=== PATIENT | male | born 1945 | race Caucasian/White ===

== ENCOUNTER 2017-07-10 05:30 | Emergency (ER) | payer MEDICARE, BC ==
[~2017-07-10] VITALS: Ht 172.7 cm; Wt 102.7 kg
[2017-07-10 05:33] VITALS: TEMP 97.8
[2017-07-10 06:38] LABS: EOS # 0.2 (0.0-0.7); GRAN # 1.1 (1.4-6.5); GRAN % 52.2 % (42.2-75.2); LYMPH # 0.5 (1.2-3.4); LYMPH % 24.4 % (20.0-51.0); MEAN CELL VOLUME 101 fl (80.0-100.0); MEAN CORPUSCULAR HGB CONC 34 g/dl (33.0-37.0); MEAN PLATELET VOLUME 10.7 fl (7.4-10.4); MONO # 0.3 (0.1-0.6); MONO % 15.5 % (1.7-9.3); PLATELET COUNT 83 K/mm3 (130-400); RED BLOOD COUNT 3.23 M/mm3 (4.20-5.60); REDCELL DISTRIBUTION WIDTH-CV 13.8 % (11.5-14.5); WHITE BLOOD COUNT 2.1 K/mm3 (4.8-10.8)
[2017-07-10 06:39] LABS: HEMATOCRIT 32.6 % (42.0-52.0); MEAN CORPUSCULAR HEMOGLOBIN 34 pg (27.0-31.0)
[2017-07-10 06:47] LABS: INR 1.1 (0.8-3.0); PROTHROMBIN TIME 11.9 SECONDS (9.7-12.8)
[2017-07-10 06:52] LABS: ADJUSTED CALCIUM 9.6 mg/dL (8.4-10.2); ALANINE AMINOTRANSFERASE 47 U/L (21-72); ALBUMIN 3.2 gm/dL (3.5-5.0); ALKALINE PHOSPHATASE 94 U/L (50-136); ANION GAP 7 mmol/L (7-16); BILIRUBIN,TOTAL 0.7 mg/dL (0.0-1.0); BLOOD UREA NITROGEN 22 mg/dL (9-20); C-REACTIVE PROTEIN 0.8 mg/dL (0.0-0.9); CARBON DIOXIDE 25 mmol/L (22-30); CHLORIDE 106 mmol/L (98-107); CREATININE, serum 1.07 mg/dL (0.66-1.25); GLUCOSE 116 mg/dL (74-106); LIPASE 117 U/L (23-300); SODIUM 138 mmol/L (137-145); TOTAL PROTEIN 5.6 gm/dL (6.4-8.2)
[2017-07-10 06:58] LABS: PH 5 (5-8); SQUAMOUS EPITHELIAL 0-2 /hpf; URINE APPEARANCE Clear; URINE BACTERIA None Seen /hpf; URINE BILIRUBIN Negative (NEGATIVE); URINE BLOOD Negative (NEGATIVE); URINE COLOR Yellow; URINE GLUCOSE Negative (NEGATIVE); URINE KETONE Negative (NEGATIVE); URINE RBC 0-2 /hpf; URINE WBC 0-2 /hpf
[2017-07-10 07:01] LABS: TROPONIN-I < 0.012 ng/mL (0.000-0.034)
[2017-07-10] MEDS ORDERED: LEVAQUIN 5500 MG/TA1 PO (10:25)
[2017-07-10 11:03] VITALS: BP 108/60; PULSE 57
== END 2017-07-10 10:57 | disposition home or self-care (01) ==
LOC: COL.ER 05:30
PROVIDERS: Emergency Medicine
DX: C18.9 Malignant neoplasm of colon, unspecified (principal); C78.7 Secondary malignant neoplasm of liver and intrahepatic bile duct; Z90.49 Acquired absence of other specified parts of digestive tract
CPT/HCPCS: J2270; J2405; J7030; Q9967

== ENCOUNTER 2017-08-22 16:09 | Inpatient (IN) | payer MEDICARE, BC ==
[~2017-08-22] VITALS: Ht 172.7 cm; Wt 99.6 kg
[~2017-08-22 16:09] MED LIST: LEVAQUIN 5500 MG/TA1 PO
[2017-08-22] MEDS ORDERED: TENORMIN100 MG PO (16:28)
[2017-08-22] MEDS ORDERED: ZOCOR 20MG20 MG PO (16:28)
[2017-08-22] MEDS ORDERED: STOOL SOFTENER100 M2 PO (16:28)
[2017-08-22] MEDS ORDERED: METAMUCIL3.4 GM/DOS PO (16:29)
[2017-08-22 17:12] LABS: BASO % 0.7 % (0.0-2.0); EOS # 0.1 (0.0-0.7); EOS % 2.4 % (0-4.0); GRAN # 2.2 (1.4-6.5); GRAN % 74.4 % (42.2-75.2); LYMPH # 0.5 (1.2-3.4); LYMPH % 15.8 % (20.0-51.0); MEAN CELL VOLUME 102 fl (80.0-100.0); MEAN CORPUSCULAR HGB CONC 34 g/dl (33.0-37.0); MEAN PLATELET VOLUME 11.1 fl (7.4-10.4); MONO # 0.2 (0.1-0.6); MONO % 6.4 % (1.7-9.3); PLATELET COUNT 71 K/mm3 (130-400); RED BLOOD COUNT 3.11 M/mm3 (4.20-5.60); REDCELL DISTRIBUTION WIDTH-CV 13.6 % (11.5-14.5)
[2017-08-22 17:18] LABS: HEMATOCRIT 31.6 % (42.0-52.0); HEMOGLOBIN 10.7 g/dl (13.5-18.0); MEAN CORPUSCULAR HEMOGLOBIN 34 pg (27.0-31.0)
[2017-08-22 17:21] LABS: INR 1.1 (0.8-3.0); PROTHROMBIN TIME 12.7 SECONDS (9.7-12.8)
[2017-08-22 17:35] LABS: ADJUSTED CALCIUM 9.7 mg/dL (8.4-10.2); ALANINE AMINOTRANSFERASE 72 U/L (21-72); ALBUMIN 3.3 gm/dL (3.5-5.0); ALKALINE PHOSPHATASE 110 U/L (50-136); ANION GAP 7 mmol/L (7-16); BILIRUBIN,TOTAL 1.1 mg/dL (0.0-1.0); BLOOD UREA NITROGEN 19 mg/dL (9-20); CALCIUM 9.1 mg/dL (8.4-10.2); CARBON DIOXIDE 24 mmol/L (22-30); CHLORIDE 109 mmol/L (98-107); CREATININE, serum 1.37 mg/dL (0.66-1.25); GLUCOSE 110 mg/dL (74-106); LIPASE 142 U/L (23-300); POTASSIUM 4.2 mmol/L (3.4-5.0); SODIUM 140 mmol/L (137-145); TOTAL PROTEIN 5.7 gm/dL (6.4-8.2)
[2017-08-22 17:46] LABS: TROPONIN-I < 0.012 ng/mL (0.000-0.034)
[2017-08-22 18:29] LABS: PH 5 (5-8); SQUAMOUS EPITHELIAL 0-2 /hpf; URINE APPEARANCE Clear; URINE BACTERIA None Seen /hpf; URINE BILIRUBIN Negative (NEGATIVE); URINE BLOOD Negative (NEGATIVE); URINE COLOR Yellow; URINE GLUCOSE Negative (NEGATIVE); URINE KETONE Negative (NEGATIVE); URINE RBC 0-2 /hpf; URINE WBC 0-2 /hpf
[2017-08-22 22:08] VITALS: BP 118/76; PULSE 78; TEMP 98.4
[2017-08-23 00:11] VITALS: BP 96/40; PULSE 75; TEMP 98.6
[2017-08-23 03:47] VITALS: BP 95/43; PULSE 62; TEMP 97.6
[2017-08-23 07:45] VITALS: BP 102/57; PULSE 64; TEMP 98.2
[2017-08-23 07:49] LABS: BASO % 0.5 % (0.0-2.0); EOS % 1.8 % (0-4.0); GRAN # 1.5 (1.4-6.5); GRAN % 68.2 % (42.2-75.2); LYMPH # 0.5 (1.2-3.4); LYMPH % 21.8 % (20.0-51.0); MEAN CELL VOLUME 103 fl (80.0-100.0); MEAN CORPUSCULAR HGB CONC 33 g/dl (33.0-37.0); MEAN PLATELET VOLUME 10.6 fl (7.4-10.4); MONO # 0.2 (0.1-0.6); MONO % 6.8 % (1.7-9.3); PLATELET COUNT 60 K/mm3 (130-400); WHITE BLOOD COUNT 2.2 K/mm3 (4.8-10.8)
[2017-08-23 08:01] LABS: CALCIUM 8.6 mg/dL (8.4-10.2); CREATININE, serum 1.12 mg/dL (0.66-1.25); POTASSIUM 4.3 mmol/L (3.4-5.0)
[2017-08-23 08:02] LABS: HEMATOCRIT 27.7 % (42.0-52.0); HEMOGLOBIN 9.2 g/dl (13.5-18.0); MEAN CORPUSCULAR HEMOGLOBIN 34 pg (27.0-31.0)
[2017-08-23 12:21] VITALS: BP 100/51; PULSE 68; TEMP 97.5
[2017-08-23 15:51] VITALS: BP 117/64; PULSE 68; TEMP 98.4
[2017-08-23] MEDS ORDERED: FLAGYL500 MG PO (17:53)
[2017-08-23] MEDS ORDERED: LEVAQUIN 750MG750 M1 PO (17:53)
[2017-08-23] MEDS ORDERED: TENORMIN100 MG PO (17:54)
== END 2017-08-23 18:59 | disposition home or self-care (01) | DRG 392 ==
LOC: COL.ER 16:09 → MEDICAL 19:32
PROVIDERS: Emergency Medicine; Family Medicine
DX: K57.32 Diverticulitis of large intestine without perforation or abscess without bleeding (principal); D61.818 Other pancytopenia; C78.7 Secondary malignant neoplasm of liver and intrahepatic bile duct; N17.9 Acute kidney failure, unspecified; I10 Essential (primary) hypertension; E78.5 Hyperlipidemia, unspecified; G47.33 Obstructive sleep apnea (adult) (pediatric); Z85.038 Personal history of other malignant neoplasm of large intestine
CPT/HCPCS: 99223-AI; 99239; J1170; J2543; J2765; J3010; J7030; J7050; Q9967

== ENCOUNTER 2017-09-05 01:40 | Emergency (ER) | payer MEDICARE, BC ==
[~2017-09-05] VITALS: Ht 172.7 cm; Wt 102.7 kg
[~2017-09-05 01:40] MED LIST changes: +FLAGYL500 MG PO; +LEVAQUIN 750MG750 M1 PO; +METAMUCIL3.4 GM/DOS PO; +STOOL SOFTENER100 M2 PO; +TENORMIN100 MG PO; +ZOCOR 20MG20 MG PO
[2017-09-05 01:55] VITALS: TEMP 97.3
[2017-09-05 02:58] LABS: MEAN CELL VOLUME 108 fl (80.0-100.0); MEAN CORPUSCULAR HGB CONC 32 g/dl (33.0-37.0); MEAN PLATELET VOLUME 11.3 fl (7.4-10.4); PLATELET COUNT 72 K/mm3 (130-400); RED BLOOD COUNT 3.27 M/mm3 (4.20-5.60); WHITE BLOOD COUNT 9.1 K/mm3 (4.8-10.8)
[2017-09-05 03:09] LABS: ADJUSTED CALCIUM 9.5 mg/dL (8.4-10.2); ALBUMIN 3.1 gm/dL (3.5-5.0); BILIRUBIN,TOTAL 0.9 mg/dL (0.0-1.0); CALCIUM 8.8 mg/dL (8.4-10.2); CREATININE, serum 1.1 mg/dL (0.66-1.25); POTASSIUM 3.8 mmol/L (3.4-5.0); TOTAL PROTEIN 5.5 gm/dL (6.4-8.2)
[2017-09-05 03:25] LABS: ADD PATHOLOGY DIFF REVIEW NO; HEMATOCRIT 35.3 % (42.0-52.0); HEMOGLOBIN 11.2 g/dl (13.5-18.0); MEAN CORPUSCULAR HEMOGLOBIN 34 pg (27.0-31.0)
[2017-09-05 03:30] LABS: BAND 1 % (0-10); EOSINOPHIL 2 % (0-4); TOTAL CELLS COUNTED 100
[2017-09-05 03:31] LABS: ANISOCYTOSIS 2+; HYPOCHROMIA 2+; MICROCYTOSIS 1+; POIKILOCYTOSIS 2+; POLYCHROMASIA 1+
[2017-09-05 03:32] LABS: ROULEAUX 1+; TEAR DROP CELLS 1+
[2017-09-05 03:33] LABS: NEUTROPHILS 83 % (42.0-75.2)
[2017-09-05 03:57] LABS: PH 5 (5-8); SQUAMOUS EPITHELIAL None Seen /hpf; URINE APPEARANCE Clear; URINE BACTERIA None Seen /hpf; URINE BILIRUBIN Negative (NEGATIVE); URINE BLOOD Negative (NEGATIVE); URINE COLOR Yellow; URINE GLUCOSE Negative (NEGATIVE); URINE KETONE Negative (NEGATIVE); URINE RBC 0-2 /hpf; URINE UROBILINOGEN Negative (NEGATIVE); URINE WBC 0-2 /hpf
[2017-09-05 05:00] VITALS: BP 135/76; PULSE 85
== END 2017-09-05 05:22 | disposition home or self-care (01) ==
LOC: COL.ER 01:40
PROVIDERS: Emergency Medicine
DX: R10.30 Lower abdominal pain, unspecified (principal); Z85.038 Personal history of other malignant neoplasm of large intestine; Z90.49 Acquired absence of other specified parts of digestive tract
CPT/HCPCS: J1644; J2270; J7030; Q9967

== ENCOUNTER → 2018-03-11 | Outpatient (CLI) | payer MEDICARE, BC ==
[~2018-03-11] VITALS: Ht 172.7 cm; Wt 111.4 kg
[~2018-03-11] MED LIST changes: +ALDACTONE 25MG25 M1 PO; +LASIX 40MG TABL40 MG PO
[2018-03-11 09:57] VITALS: BP 154/87; PULSE 92
[2018-03-11 11:35] VITALS: BP 154/89; PULSE 86
== END ==
LOC: COL.RAD 09:45
DX: C18.2 Malignant neoplasm of ascending colon (principal); R18.0 Malignant ascites

== ENCOUNTER → 2018-04-29 | Outpatient (CLI) | payer MEDICARE, BC ==
[~2018-04-29] VITALS: Ht 172.7 cm; Wt 106.6 kg
[~2018-04-29] MED LIST changes: +5FU IV; +DOXYCYCLINE HY100 MG PO; +FLUOROURACIL50 MG/ML IV; +UROMAG140 MG PO; +[UNRECOGNIZED DRUG - OTHER] IV
[2018-04-29 12:53] VITALS: BP 120/72; PULSE 94
[2018-04-29 14:10] VITALS: BP 114/80; PULSE 79
== END ==
LOC: COL.RAD 04-27 11:45
DX: R18.8 Other ascites (principal)
CPT/HCPCS: 19804

== ENCOUNTER → 2018-05-14 | Outpatient (CLI) | payer MEDICARE, BC ==
[~2018-05-14] VITALS: Ht 172.7 cm; Wt 104.5 kg
[2018-05-14 13:15] VITALS: BP 115/73; PULSE 94
[2018-05-14 14:40] VITALS: BP 126/75; PULSE 95
== END ==
LOC: COL.RAD 12:45
DX: R18.8 Other ascites (principal); Z85.038 Personal history of other malignant neoplasm of large intestine

== ENCOUNTER → 2018-05-28 | Outpatient (CLI) | payer MEDICARE, BC ==
[~2018-05-28] VITALS: Ht 172.7 cm; Wt 106.3 kg
[~2018-05-28] MED LIST changes: +LASIX 80MG TABL80 MG PO
[2018-05-28 13:34] VITALS: BP 119/74; PULSE 86
[2018-05-28 16:21] VITALS: BP 122/73; PULSE 78
== END ==
LOC: COL.RAD 13:08
DX: C18.2 Malignant neoplasm of ascending colon (principal); R18.8 Other ascites

== ENCOUNTER 2018-06-14 12:54 | Outpatient (CLI) | payer MEDICARE, BC ==
[~2018-06-14] VITALS: Ht 172.7 cm; Wt 106.5 kg
[2018-06-14 13:02] VITALS: BP 128/93; PULSE 93
[2018-06-14 15:33] VITALS: BP 106/60; PULSE 78
[2018-06-14 15:35] LABS: PERITONEAL -POLYMORPHONUCLEAR 23.6 % (0-25); PERITONEAL FLUID RBC 0 /mm3 (0-0)
== END 2018-06-14 18:00 | disposition home or self-care (01) ==
LOC: COL.RAD 12:54
PROVIDERS: Internal Medicine
DX: R18.8 Other ascites (principal); Z85.038 Personal history of other malignant neoplasm of large intestine
CPT/HCPCS: P9047

== ENCOUNTER 2018-07-01 13:40 | Outpatient (CLI) | payer MEDICARE, BC ==
[~2018-07-01] VITALS: Ht 172.7 cm; Wt 102.7 kg
[2018-07-01 14:01] VITALS: BP 114/69; PULSE 83
[2018-07-01 16:46] LABS: PERITONEAL -POLYMORPHONUCLEAR 23.8 % (0-25); PERITONEAL FLUID RBC 1000 /mm3 (0-0)
== END 2018-07-01 17:34 | disposition home or self-care (01) ==
LOC: COL.RAD 13:40
PROVIDERS: Internal Medicine
DX: C18.2 Malignant neoplasm of ascending colon (principal); R18.0 Malignant ascites
CPT/HCPCS: P9047

== ENCOUNTER 2018-07-29 12:36 | Outpatient (CLI) | payer MEDICARE, BC ==
[~2018-07-29] VITALS: Ht 172.7 cm; Wt 95.6 kg
[2018-07-29 12:53] VITALS: BP 104/65; PULSE 86
[2018-07-29 14:41] LABS: PERITONEAL FLUID RBC 1000 /mm3 (0-0)
[2018-07-29 15:26] VITALS: BP 102/57; PULSE 73; TEMP 97
== END 2018-07-29 16:30 | disposition home or self-care (01) ==
LOC: EUO 12:36 → COL.RAD 12:36
PROVIDERS: Internal Medicine
DX: R18.8 Other ascites (principal); C77.1 Secondary and unspecified malignant neoplasm of intrathoracic lymph nodes; C77.2 Secondary and unspecified malignant neoplasm of intra-abdominal lymph nodes; C78.7 Secondary malignant neoplasm of liver and intrahepatic bile duct; C18.2 Malignant neoplasm of ascending colon
CPT/HCPCS: J1644; P9047

== ENCOUNTER 2018-08-20 09:00 | Outpatient (CLI) | payer MEDICARE, BC ==
[~2018-08-20] VITALS: Ht 172.7 cm; Wt 98.5 kg
[2018-08-20 09:14] VITALS: BP 119/76; PULSE 92
[2018-08-20 11:05] LABS: PERITONEAL -POLYMORPHONUCLEAR 22.7 % (0-25); PERITONEAL FLUID RBC 1000 /mm3 (0-0)
[2018-08-20 11:26] VITALS: BP 134/81; PULSE 82; TEMP 97.2
== END 2018-08-20 11:52 | disposition home or self-care (01) ==
LOC: COL.RAD 09:00
PROVIDERS: Internal Medicine
DX: C18.2 Malignant neoplasm of ascending colon (principal); R18.8 Other ascites
CPT/HCPCS: J1644; P9047

== ENCOUNTER 2018-09-07 09:01 | Outpatient (CLI) | payer MEDICARE, BC ==
[~2018-09-07] VITALS: Ht 172.7 cm; Wt 102.4 kg
[2018-09-07 09:17] VITALS: BP 129/79; PULSE 98
[2018-09-07 12:34] LABS: PERITONEAL -POLYMORPHONUCLEAR 20.4 % (0-25); PERITONEAL FLUID RBC 1000 /mm3 (0-0)
[2018-09-07 12:46] VITALS: BP 121/61; PULSE 54; TEMP 97.7
== END 2018-09-07 13:30 | disposition home or self-care (01) ==
LOC: COL.RAD 09:01
PROVIDERS: Internal Medicine
DX: C18.2 Malignant neoplasm of ascending colon (principal); R18.8 Other ascites
CPT/HCPCS: J1644; P9047

== ENCOUNTER 2018-09-29 14:21 | Outpatient (CLI) | payer MEDICARE, BC ==
[~2018-09-29] VITALS: Ht 172.7 cm; Wt 89.1 kg
[2018-09-29 14:38] VITALS: BP 125/86; PULSE 99
[2018-09-29 16:19] VITALS: BP 130/86; PULSE 81; TEMP 97.4
[2018-09-29 16:35] LABS: PLEURAL FLUID RBC 1000 /mm3 (0-0); PLEURAL FLUID WBC 115 /mm3
[2018-09-29 16:38] LABS: PLEURAL FLUID APPEARANCE HAZY; PLEURAL FLUID COLOR YELLOW
== END 2018-09-29 18:14 | disposition home or self-care (01) ==
LOC: COL.RAD 14:21
PROVIDERS: Internal Medicine
DX: C18.2 Malignant neoplasm of ascending colon (principal); C77.1 Secondary and unspecified malignant neoplasm of intrathoracic lymph nodes; C77.2 Secondary and unspecified malignant neoplasm of intra-abdominal lymph nodes; C78.7 Secondary malignant neoplasm of liver and intrahepatic bile duct
CPT/HCPCS: J1644; P9047

== ENCOUNTER 2018-11-18 09:42 | Outpatient (CLI) | payer MEDICARE, BC ==
[~2018-11-18] VITALS: Ht 172.7 cm; Wt 93.0 kg
[2018-11-18 10:11] VITALS: BP 126/74; PULSE 103
[2018-11-18 12:13] VITALS: BP 117/67; PULSE 93; TEMP 97.5
[2018-11-18 12:28] LABS: PERITONEAL -POLYMORPHONUCLEAR 9.1 % (0-25); PERITONEAL FLUID RBC 1000 /mm3 (0-0)
== END 2018-11-18 14:51 | disposition home or self-care (01) ==
LOC: EUO 09:42 → COL.RAD 09:42
PROVIDERS: Internal Medicine
DX: C18.2 Malignant neoplasm of ascending colon (principal); C77.1 Secondary and unspecified malignant neoplasm of intrathoracic lymph nodes; C77.2 Secondary and unspecified malignant neoplasm of intra-abdominal lymph nodes; C78.7 Secondary malignant neoplasm of liver and intrahepatic bile duct
CPT/HCPCS: J1644; P9047

== ENCOUNTER 2018-12-02 12:27 | Outpatient (CLI) | payer MEDICARE, BC ==
[~2018-12-02] VITALS: Ht 172.7 cm; Wt 86.4 kg
[2018-12-02 13:28] VITALS: BP 106/72; PULSE 79
[2018-12-02 15:08] LABS: PERITONEAL -POLYMORPHONUCLEAR 12.3 % (0-25); PERITONEAL FLUID RBC 1000 /mm3 (0-0)
[2018-12-02 15:33] VITALS: BP 98/65; PULSE 76; TEMP 97.4
--- NOTE | 2018-12-02 17:02 | NUR ---
De-accessed PAC post Albumin infusion
== END 2018-12-02 17:04 | disposition home or self-care (01) ==
LOC: COL.RAD 12:27
PROVIDERS: Internal Medicine
DX: C18.2 Malignant neoplasm of ascending colon (principal); C77.1 Secondary and unspecified malignant neoplasm of intrathoracic lymph nodes; C77.2 Secondary and unspecified malignant neoplasm of intra-abdominal lymph nodes; C78.7 Secondary malignant neoplasm of liver and intrahepatic bile duct
CPT/HCPCS: P9047

== ENCOUNTER 2018-12-20 12:56 | Outpatient (CLI) | payer MEDICARE, BC ==
[~2018-12-20] VITALS: Ht 172.7 cm; Wt 94.6 kg
[2018-12-20 13:16] VITALS: BP 118/81; PULSE 102
[2018-12-20 15:15] VITALS: BP 121/67; PULSE 84; TEMP 96.7
[2018-12-20 15:53] VITALS: BP 110/71; PULSE 52; TEMP 97.5
[2018-12-20 16:49] LABS: PERITONEAL -POLYMORPHONUCLEAR 13.3 % (0-25); PERITONEAL FLUID RBC 0 /mm3 (0-0)
== END 2018-12-20 17:27 | disposition home or self-care (01) ==
LOC: COL.RAD 12:56 → EUO 12:56 → COL.RAD 13:00
PROVIDERS: Internal Medicine
DX: C18.2 Malignant neoplasm of ascending colon (principal); C77.1 Secondary and unspecified malignant neoplasm of intrathoracic lymph nodes; C77.2 Secondary and unspecified malignant neoplasm of intra-abdominal lymph nodes; C78.7 Secondary malignant neoplasm of liver and intrahepatic bile duct
CPT/HCPCS: J1644; P9047

== ENCOUNTER → 2019-01-13 | Outpatient (CLI) | payer MEDICARE, BC ==
[~2019-01-13] VITALS: Ht 172.7 cm; Wt 89.6 kg
[2019-01-13 12:58] VITALS: BP 113/81; PULSE 103
[2019-01-13 14:51] VITALS: BP 102/48; PULSE 85; TEMP 97.6
[2019-01-13 14:56] LABS: PERITONEAL -POLYMORPHONUCLEAR 24.3 % (0-25); PERITONEAL FLUID RBC 1000 /mm3 (0-0)
== END ==
LOC: COL.RAD 12:30
PROVIDERS: Internal Medicine
DX: C18.2 Malignant neoplasm of ascending colon (principal); C77.1 Secondary and unspecified malignant neoplasm of intrathoracic lymph nodes; C77.2 Secondary and unspecified malignant neoplasm of intra-abdominal lymph nodes; C78.7 Secondary malignant neoplasm of liver and intrahepatic bile duct
CPT/HCPCS: J1644; P9047

== ENCOUNTER 2019-01-27 13:04 | Outpatient (CLI) | payer MEDICARE, BC ==
[~2019-01-27] VITALS: Ht 172.7 cm; Wt 83.4 kg
[2019-01-27 13:22] VITALS: BP 94/44; PULSE 99
[2019-01-27 15:15] LABS: PERITONEAL -POLYMORPHONUCLEAR 81.2 % (0-25); PERITONEAL FLUID RBC 1000 /mm3 (0-0)
[2019-01-27 15:45] VITALS: BP 103/63; PULSE 93
== END 2019-01-27 17:45 | disposition home or self-care (01) ==
LOC: COL.RAD 13:04
PROVIDERS: Internal Medicine
DX: C18.2 Malignant neoplasm of ascending colon (principal); C77.1 Secondary and unspecified malignant neoplasm of intrathoracic lymph nodes; C77.2 Secondary and unspecified malignant neoplasm of intra-abdominal lymph nodes; C78.7 Secondary malignant neoplasm of liver and intrahepatic bile duct
CPT/HCPCS: J1644; P9047

== ENCOUNTER 2019-02-04 02:05 | Inpatient (IN) | payer MEDICARE, BC ==
[~2019-02-04] VITALS: Ht 172.7 cm; Wt 99.0 kg
[2019-02-04 02:55] LABS: GRAN # 7.2 (1.4-6.5); GRAN % 91.8 % (42.2-75.2); HEMOGLOBIN 10.3 g/dl (13.5-18.0); LYMPH # 0.4 (1.2-3.4); LYMPH % 5.2 % (20.0-51.0); MEAN CELL VOLUME 107 fl (80.0-100.0); MEAN CORPUSCULAR HEMOGLOBIN 37 pg (27.0-31.0); MEAN CORPUSCULAR HGB CONC 34 g/dl (33.0-37.0); MONO # 0.2 (0.1-0.6); MONO % 2.2 % (1.7-9.3); PLATELET COUNT 50 K/mm3 (130-400); RED BLOOD COUNT 2.82 M/mm3 (4.20-5.60); REDCELL DISTRIBUTION WIDTH-CV 19.3 % (11.5-14.5)
[2019-02-04 02:57] LABS: HEMATOCRIT 30.2 % (42.0-52.0)
[2019-02-04 02:59] LABS: INR 1.2 (0.8-3.0); PROTHROMBIN TIME 13.5 SECONDS (9.7-12.8)
[2019-02-04 03:01] LABS: PARTIAL THROMBOPLASTIN TIME 36.2 SECONDS (26.0-37.0)
[2019-02-04 03:05] LABS: LACTIC ACID 1.5 mmol/L (0.4-2.0)
[2019-02-04 03:08] LABS: ALANINE AMINOTRANSFERASE 116 U/L (21-72); ALBUMIN 3.4 gm/dL (3.5-5.0); ALKALINE PHOSPHATASE 359 U/L (50-136); ANION GAP 11 mmol/L (7-16); AST,SGOT 89 U/L (15-37); BILIRUBIN,TOTAL 3.1 mg/dL (0.0-1.0); BLOOD UREA NITROGEN 67 mg/dL (9-20); C-REACTIVE PROTEIN 1.4 mg/dL (0.0-0.9); CALCIUM 9.1 mg/dL (8.4-10.2); CARBON DIOXIDE 21 mmol/L (22-30); CHLORIDE 95 mmol/L (98-107); CREATININE, serum 2.18 mg/dL (0.66-1.25); GLUCOSE 116 mg/dL (74-106); MAGNESIUM 1.8 mg/dL (1.6-2.3); SODIUM 128 mmol/L (137-145); TOTAL PROTEIN 5.7 gm/dL (6.4-8.2)
[2019-02-04 03:09] LABS: POTASSIUM 5.8 mmol/L (3.4-5.0)
[2019-02-04 03:21] LABS: TROPONIN-I < 0.012 ng/mL (0.000-0.035)
[2019-02-04 04:54] LABS: COLLECTION METHOD CLEAN CATCH
[2019-02-04 04:59] LABS: PH 5 (5-8); SQUAMOUS EPITHELIAL None Seen /hpf; URINE APPEARANCE Clear; URINE BACTERIA None Seen /hpf; URINE BILIRUBIN Negative (NEGATIVE); URINE BLOOD Negative (NEGATIVE); URINE COLOR Yellow; URINE GLUCOSE Negative (NEGATIVE); URINE KETONE Negative (NEGATIVE); URINE LEUKOCYTE ESTERASE Negative (NEGATIVE); URINE NITRATE Negative (NEGATIVE); URINE PROTEIN(semi-quant) Negative (NEGATIVE); URINE RBC 0-2 /hpf; URINE UROBILINOGEN Negative (NEGATIVE)
--- NOTE | 2019-02-04 05:25 | NUR ---
Called and received report from NICOLE Lopez in the ED. She will hang antibiotics and give lactulose then bring the patient over via stretcher. at bedside.
[2019-02-04] MEDS ORDERED: RESTORIL 1515 MG/CAP PO (05:52)
[2019-02-04] MEDS ORDERED: CIPRO 500MG TA500 MG PO (05:52)
--- NOTE | 2019-02-04 06:00 | NUR ---
Patient arrives via stretcher at this time. Patient's at bedside. Patient transferred to unit bed via slide board. Patient positioned for comfort. Attached to monitoring equipment. Assessment complete. Patient has generalized bruising over all areas of his body to include his head. Patient also has skin tears on trunk, upper and lower extremities. The Most recent and actively bleeding skin tears are on his right chest above his port that was cause by removing the port dressing; his right forearm/elbow that happened during transfering in the ED; and his left arm with multiple ranging from wrist to elbow. Patient's skin is very thin and jaundice. After repositioning the patient he became nauseated. Provided emesis bag, but no vomitus produced at this time. Patient has no complaints of pain, but cries out when moved. Patient opens eyes to name or movement of self, patient is only oriented to self. Patient falls asleep quickly and gets confused and begins yelling. Patient's temperature continues to be low at 95.7 rectally, bear hugger turned up to medium heat level. Medications to be given. Will continue to monitor. Call light within reach.
[2019-02-04] MEDS ORDERED: ALDACTONE50 MG PO (06:19)
[2019-02-04 06:48] LABS: ARTERIAL BLD GAS O2 SATURATION 94.9 % (92-100); ARTERIAL BLD GAS TCO2 CT 17.5; ARTERIAL BLOOD GAS BASE EXCESS -7.4 (-2-2); ARTERIAL BLOOD GAS HCO3 16.6 meq/L (22-26); ARTERIAL BLOOD GAS PCO2 28.3 mmHg (35-45); ARTERIAL BLOOD GAS PO2 90.2 mmHg (80-100); ARTERIAL BLOOD GAS pH 7.39 (7.35-7.45)
[2019-02-04 07:00] VITALS: BP 90/56; PULSE 103; TEMP 96.9
[2019-02-04 07:22] VITALS: BP 120/74; PULSE 113; TEMP 95.7
[2019-02-04 08:00] VITALS: BP 85/55; PULSE 100; TEMP 96.9
--- NOTE | 2019-02-04 08:00 | NUR ---
Bedside report received from NICOLE Dooley. Assessment completed. Pt's at bedside. Pt continues to be drowsy. Opens eyes briefly to name. Reoriented to place and time. Pt has multiple bruises and skin tears all over chest, bilat arms, and forehead. Skin tears on arms wrapped with gauze. SBP 90s and HR 100s on monitor. Will monitor.
[2019-02-04 08:23] LABS: CALCIUM 8.5 mg/dL (8.4-10.2); CREATININE, serum 1.89 mg/dL (0.66-1.25); POTASSIUM 4.5 mmol/L (3.4-5.0)
--- NOTE | 2019-02-04 08:30 | NUR ---
Bedside report given to Sabrina Mondragon RN. Assisted NICOLE Bennett with bed change and applying dressings to actively bleeding skin tears. Cleaned with NS and applied Kerlix and then secured with coban.
--- NOTE | 2019-02-04 09:30 | NUR ---
Lorene babb ARDMORE notified of PICC consult.
--- NOTE | 2019-02-04 10:00 | NUR ---
Echo at bedside.
--- NOTE | 2019-02-04 10:15 | NUR ---
First visit from the organ pipe voicer. No needs right now.
--- NOTE | 2019-02-04 10:35 | NUR ---
Lorene babb MIAMI at bedside for PICC placement.
[2019-02-04 11:00] LABS: CALCIUM 8.5 mg/dL (8.4-10.2); CREATININE, serum 1.88 mg/dL (0.66-1.25); POTASSIUM 4.6 mmol/L (3.4-5.0)
[2019-02-04 12:00] VITALS: BP 97/65; PULSE 104; TEMP 97.4
[2019-02-04 12:23] LABS: CALCIUM 8.6 mg/dL (8.4-10.2); CREATININE, serum 1.82 mg/dL (0.66-1.25); POTASSIUM 4.6 mmol/L (3.4-5.0)
--- NOTE | 2019-02-04 12:30 | NUR ---
paracentesis completed at bedside. 1L taken out and peritoneal fluid sent to lab.
[2019-02-04 13:09] LABS: PERITONEAL -POLYMORPHONUCLEAR 11.9 % (0-25); PERITONEAL FLUID RBC 1000 /mm3 (0-0)
--- NOTE | 2019-02-04 13:12 | NUR ---
JENI cao and SW attended clinical rounds. The patient lives with his , Luz. The states that they just moved to a more accessible home due to his increased weakness. Patient's also reports that the patient has a walker. The patient's states they would like aggressive care and to remain at full resuscitation. JENI cao followed up with patient's and daughter (Asmita) after rounds. The states that the patient does not have a completed DPOA-HC, but they would be interested in completing one when the patient's mental status improves. SW to continue to follow.
[2019-02-04 14:16] LABS: FOLATE (FOLIC ACID) >20.0 ng/mL (7.0-31.4)
[2019-02-04 14:22] LABS: CALCIUM 8.5 mg/dL (8.4-10.2); CREATININE, serum 1.79 mg/dL (0.66-1.25); POTASSIUM 4.7 mmol/L (3.4-5.0)
[2019-02-04 16:00] VITALS: BP 109/69; PULSE 103; TEMP 97.4
--- NOTE | 2019-02-04 19:22 | NUR ---
Report given to NICOLE Romero.
[2019-02-04 20:00] VITALS: BP 119/72; PULSE 109; TEMP 97.5
--- NOTE | 2019-02-04 20:30 | NUR ---
PT HAD A COMPLETE BED BATH, DRESSING ON BUE SKIN TEAR CHANGED, NOW CLEAN, DRY, AND INTACT.
[2019-02-04 20:48] LABS: CALCIUM 8.6 mg/dL (8.4-10.2); CREATININE, serum 1.78 mg/dL (0.66-1.25); POTASSIUM 4.7 mmol/L (3.4-5.0)
--- NOTE | 2019-02-04 21:20 | NUR ---
THIS RN WAS CALLED BY LAB ASKING IF MD WANTS PATHOLOGY REVIEW DONE, I CALLED DR. ANDINO AND VERBALIZED HE'LL REVIEW IT AND WILL GIVE ME A CALL BACK. AWAITING CALL BACK.
[2019-02-05] VITALS (11 sets, daily range): BP systolic 74–127; BP diastolic 50–86; PULSE 96–109; TEMP 97.2–98
[2019-02-05 06:10] LABS: ALBUMIN 2.7 gm/dL (3.5-5.0); CALCIUM 8.7 mg/dL (8.4-10.2); CREATININE, serum 1.7 mg/dL (0.66-1.25); POTASSIUM 4.6 mmol/L (3.4-5.0); TOTAL PROTEIN 4.7 gm/dL (6.4-8.2)
[2019-02-05 07:33] LABS: MEAN CELL VOLUME 108 fl (80.0-100.0); MEAN CORPUSCULAR HGB CONC 34 g/dl (33.0-37.0); MEAN PLATELET VOLUME 10.4 fl (7.4-10.4); RED BLOOD COUNT 2.23 M/mm3 (4.20-5.60)
[2019-02-05 08:22] LABS: PLATELET COUNT 25 K/mm3 (130-400)
[2019-02-05 08:23] LABS: HEMOGLOBIN 8.2 g/dl (13.5-18.0); MEAN CORPUSCULAR HEMOGLOBIN 37 pg (27.0-31.0)
--- NOTE | 2019-02-05 08:30 | NUR ---
Pt AAOx4 after redirection regarding pt is in [facility]. Spouse and daughter at bedside, stating yesterday he would not have known any of the level of orientation assessment questions asked. Pt resting in bed, independent in operating degree of head of bed elevation, tolerating PO. Call light within reach, no complaints at this time.
[2019-02-05 09:04] LABS: BAND 1 % (0-10); LYMPHOCYTE 4 % (20.0-51.0); NEUTROPHILS 95 % (42.0-75.2); NUCLEATED RED BLOOD CELL 1 (0-6)
[2019-02-05 09:08] LABS: PLATELET ESTIMATE DECREASED (NORMAL)
[2019-02-05 09:09] LABS: ANISOCYTOSIS 2+; HYPOCHROMIA 1+
--- NOTE | 2019-02-05 10:03 | NUR ---
All IV accesses are contain drainage. Dressings changed
--- NOTE | 2019-02-05 13:07 | NUR ---
Chaplain mckeonyed while family was in room.
[2019-02-06] VITALS: BP 118/71; PULSE 102; TEMP 97.2
[2019-02-06 04:00] VITALS: BP 122/87; PULSE 100; TEMP 97.7
[2019-02-06 06:16] LABS: MEAN CELL VOLUME 111 fl (80.0-100.0); MEAN CORPUSCULAR HGB CONC 33 g/dl (33.0-37.0); RED BLOOD COUNT 2.09 M/mm3 (4.20-5.60); REDCELL DISTRIBUTION WIDTH-CV 18.8 % (11.5-14.5)
[2019-02-06 06:24] LABS: HEMATOCRIT 23.1 % (42.0-52.0); HEMOGLOBIN 7.5 g/dl (13.5-18.0); MEAN CORPUSCULAR HEMOGLOBIN 36 pg (27.0-31.0)
[2019-02-06 06:26] LABS: CALCIUM 8.5 mg/dL (8.4-10.2); CREATININE, serum 1.7 mg/dL (0.66-1.25); PLATELET COUNT 22 K/mm3 (130-400)
--- NOTE | 2019-02-06 06:30 | NUR ---
CRITICAL LAB OF [facility] AT 22. CALLED E CARE TO [facility], NO NEW ORDERS RECEIVED.
[2019-02-06 08:00] VITALS: BP 94/62; PULSE 108; TEMP 97.2
--- NOTE | 2019-02-06 08:56 | NUR ---
Pt AAOx4, family at bedside, no complaints, stating slept well through the night with only 2 bowel movements. BP closely monitored for potential Levophed initiation. Skin integrity stable and has not changed since yesterday. Call light within reach. Tolerating PO without nausea - edudcated pt about Zofran IV PRN if needed. Jah PRADHAN on unit assessing pt - imputing orders.
[2019-02-06 09:15] VITALS: BP 109/81
[2019-02-06 10:15] LABS: EOSINOPHIL 1 % (0-4); LYMPHOCYTE 1 % (20.0-51.0); NEUTROPHILS 98 % (42.0-75.2)
[2019-02-06 10:16] LABS: PLATELET ESTIMATE DECREASED (NORMAL)
[2019-02-06 10:17] LABS: HYPOCHROMIA 2+
--- NOTE | 2019-02-06 10:18 | NUR ---
Central Line Dressing Change Interventioned not performed - both dressings changed yesterday and remain stable
--- NOTE | 2019-02-06 11:30 | NUR ---
Pt returned from CT scan, pt taken to courtyard window to get sun in face and observe outside since ICU room contains no window to outside, taken via bed, accompaniied by this RN, spouse and 2 daughters. Returned to room after 10min. No complications.
[2019-02-06 16:00] VITALS: BP 111/78; PULSE 116; TEMP 98.7
[2019-02-06 18:02] VITALS: BP 103/73; PULSE 120
--- NOTE | 2019-02-06 18:30 | NUR ---
Pt transported via wheelchair to courtyard outside to visit with 12 family/friends. Pt transported back to ICU 2. This RN stayed with pt throughout. No complications. Pt wishes to stay sitting upright in wheelchair in room - "Feels good to sit up straight, getting tired of laying in that bed". Friends X2 at bedside. Call ligth within reach.
--- NOTE | 2019-02-06 19:20 | NUR ---
Bedside report received from NICOLE Norris
--- NOTE | 2019-02-06 20:00 | NUR ---
Assessment complete. Patient resting in bed quietly with daughter and at the bedside. Patient has no complaints of pain. Patient is still jaundice in color and has a firm abdomen with ascites. BLE edema has improved. Patient is alert and oriented. Vitals are stable and WNL. Patient does not have any requests at this time. Will continue to monitor. Call light within reach.
[2019-02-07] VITALS: BP 99/73; PULSE 121; TEMP 97.5
--- NOTE | 2019-02-07 | NUR ---
Patient asleep at this time. Awakens easily to noise in the room. Patient has no complaints of pain and appears to be resting comfortably on his CPAP. Vitals remain stable and WNL. WIll continue to monitor. Call light within reach.
[2019-02-07 04:00] VITALS: BP 102/72; PULSE 113; TEMP 97.5
--- NOTE | 2019-02-07 04:00 | NUR ---
Patient awake and uses the urinal at this time. No complaints of pain, discomfort, or SOB. Vitals remain WNL. Patient is resting comfortably. No further needs. Will continue to monitor. Call light within reach.
[2019-02-07 05:09] LABS: MEAN CELL VOLUME 110 fl (80.0-100.0); MEAN CORPUSCULAR HGB CONC 33 g/dl (33.0-37.0); RED BLOOD COUNT 2.23 M/mm3 (4.20-5.60); REDCELL DISTRIBUTION WIDTH-CV 18.4 % (11.5-14.5)
[2019-02-07 05:23] LABS: ALBUMIN 2.6 gm/dL (3.5-5.0); BILIRUBIN,TOTAL 2.3 mg/dL (0.0-1.0); CALCIUM 8.4 mg/dL (8.4-10.2); CREATININE, serum 1.64 mg/dL (0.66-1.25); MAGNESIUM 1.9 mg/dL (1.6-2.3); PHOSPHOROUS 1.8 mg/dL (2.5-4.5); POTASSIUM 3.7 mmol/L (3.4-5.0); TOTAL PROTEIN 4.7 gm/dL (6.4-8.2)
[2019-02-07 05:30] LABS: HEMATOCRIT 24.6 % (42.0-52.0); HEMOGLOBIN 8.1 g/dl (13.5-18.0); MEAN CORPUSCULAR HEMOGLOBIN 36 pg (27.0-31.0)
[2019-02-07 05:32] LABS: PLATELET COUNT 29 K/mm3 (130-400)
[2019-02-07 05:47] LABS: BAND 1 % (0-10); LYMPHOCYTE 6 % (20.0-51.0); NEUTROPHILS 93 % (42.0-75.2); NUCLEATED RED BLOOD CELL 1 (0-6); PLATELET ESTIMATE DECREASED (NORMAL)
[2019-02-07 05:48] LABS: ANISOCYTOSIS 2+; HYPOCHROMIA 1+; ROULEAUX 1+
[2019-02-07 05:49] LABS: BURR CELLS 1+; TEAR DROP CELLS 2+
[2019-02-07 05:50] LABS: SCHISTOCYTES 1+
[2019-02-07 05:55] LABS: BILIRUBIN UNCONJUGATED 0.6 mg/dL (0.0-1.1); BILIRUBIN,DIRECT 1.5 mg/dL (0.0-0.4)
--- NOTE | 2019-02-07 07:10 | NUR ---
Report recieved from NICOLE Dooley. Patient resting with at bedside. Denies needs at this time. REBEKAH PICC locked. Bed in low and locked position, call light within reach, rails up x3, bed alarm armed. Care assumed at this time.
--- NOTE | 2019-02-07 07:20 | NUR ---
Bedside report given to NICOLE Bennett
[2019-02-07 08:19] VITALS: BP 106/72; PULSE 103; TEMP 98.9
--- NOTE | 2019-02-07 10:30 | NUR ---
PICC intact left upper arm. Small amount of drainage located under dressing. patient's skin is oozing serous red drainage due to low platelets. with sterile technique left upper arm PICC dressing change done with insertion site cleansed with ChloraPrep 1, chlorhexidine impregnated disc applied, skin prep, StatLock, and Tegaderm applied. Arm wrapped with Patrice to protect catheter. Patient's skin is very fragile. We'll continue to monitor..
--- NOTE | 2019-02-07 10:55 | NUR ---
PT works with patient at this time.
--- NOTE | 2019-02-07 10:56 | NUR ---
SW met with patient, patient's , and daughter about DPOA-HC. SW explained to patient what a DPOA is for. Patient understands and would like to complete the form. SW provided form. Patient's will help complete the form and SW will return when patient is ready to sign.
[2019-02-07 12:30] VITALS: BP 100/71; PULSE 108; TEMP 98.8
--- NOTE | 2019-02-07 12:44 | NUR ---
Patient has tolerated being up to the recliner without complication or complaint. Denies needs at this time. Care ongoing.
--- NOTE | 2019-02-07 13:53 | NUR ---
Patient provided with telemetry box and WC. Allowed to visit courtyard with daughter per request. Care ongoing.
--- NOTE | 2019-02-07 14:48 | NUR ---
Report called to NICOLE Mora.
--- NOTE | 2019-02-07 14:58 | NUR ---
Received pt from ICU. Oriented family and patient to room. Pt is alert but confused as to why he is in the hospital, family is helping to orient him. Call light in reach.
[2019-02-07 16:23] VITALS: BP 97/63; PULSE 110; TEMP 97.9
--- NOTE | 2019-02-07 17:15 | NUR ---
Changed dressing to wounds using sterile saline, covered with non adherent pad and wrapped with kerlix. Right arm open wound on hand, right forearm, 3 small round caterina sized open wounds. Left hand has quarter sized open wound, and right foream has large skin tear. Dated and initialed.
--- NOTE | 2019-02-07 18:34 | NUR ---
Pt sitting up in bed, food tray in front of him. Pts family is in room helping pt. Pt is alert with intermittant confusion. Able to verbalize where he is but does not understand why he is in the hospital. Denies any pain, breathing even and unlabored. Call light in reach.
--- NOTE | 2019-02-07 20:30 | NUR ---
Initial shift assessment done-denies pain at this time- family in room- pt repositioned in bed, Tele on-having to change pads/leads numerous times-- will change out the tele box , tele not getting a good reading,,, getting antibiotics IV {carola,flagyl } angella
[2019-02-07 23:39] VITALS: BP 95/68; PULSE 114; TEMP 96.5
[2019-02-08 03:50] VITALS: BP 96/61; PULSE 100; PULSE 67; TEMP 97.6
[2019-02-08 05:38] LABS: MEAN CELL VOLUME 106 fl (80.0-100.0); MEAN CORPUSCULAR HGB CONC 34 g/dl (33.0-37.0); MEAN PLATELET VOLUME 11.1 fl (7.4-10.4); RED BLOOD COUNT 2.16 M/mm3 (4.20-5.60); REDCELL DISTRIBUTION WIDTH-CV 17.3 % (11.5-14.5)
--- NOTE | 2019-02-08 05:39 | NUR ---
Denies pain- repositioned often in bed,,skin tear to left hand was redressed using adhesive pad and kerlix,,pt using urinal to void- dark sujey urine. SCD,,s on.
[2019-02-08 05:41] LABS: HEMATOCRIT 22.9 % (42.0-52.0); HEMOGLOBIN 7.8 g/dl (13.5-18.0); MEAN CORPUSCULAR HEMOGLOBIN 36 pg (27.0-31.0)
[2019-02-08 05:42] LABS: PLATELET COUNT 25 K/mm3 (130-400)
[2019-02-08 05:54] LABS: ALBUMIN 2.5 gm/dL (3.5-5.0); BILIRUBIN,TOTAL 2.8 mg/dL (0.0-1.0); CALCIUM 8.1 mg/dL (8.4-10.2); CREATININE, serum 1.66 mg/dL (0.66-1.25); POTASSIUM 3.7 mmol/L (3.4-5.0); TOTAL PROTEIN 4.7 gm/dL (6.4-8.2)
[2019-02-08 06:00] LABS: BILIRUBIN UNCONJUGATED 0.7 mg/dL (0.0-1.1)
[2019-02-08 06:04] LABS: ANISOCYTOSIS 2+; LYMPHOCYTE 10 % (20.0-51.0); METAMYELOCYTE 1 % (0-0); NEUTROPHILS 87 % (42.0-75.2); POIKILOCYTOSIS 1+; POLYCHROMASIA 2+
[2019-02-08 08:49] VITALS: BP 86/58; PULSE 96; TEMP 97.6
--- NOTE | 2019-02-08 11:00 | NUR ---
assessment completed, alert/ partially oriented but very forgetful, ST seeing him for cognitive eval today, he denies any pain/ but reports feeling uncomfortable and "tight" in the belly due to all the ascites, in at this time to discuss plan of care and options with the family, patient has poor progniosis and we will do a palliative care consult with family
--- NOTE | 2019-02-08 11:54 | NUR ---
The patient's daughter approached SW to inform that the patient, patient's , and her had questions about hospice care and that they may be interested in hospice. JENI discussed hospice options and informed them of our palliative care nurse, Samantha. SW informed the patient's PA. A palliative care consult was ordered. SW to continue to follow.
[2019-02-08 12:08] VITALS: BP 83/58; PULSE 105; TEMP 98
--- NOTE | 2019-02-08 15:46 | NUR ---
Palliative care nurse talked with and daughters about goals of care and choices of services available. Family reports that they have just moved into a 1 level apartment in [place] that is part of the [facility]. and daughters would like to consider his transfer to the [facility] on skilled care for PT/OT to see if he can make progress. If this is not a successful move, then family would like for him to return home to the apartment with hospice services through [facility]. The family would plan to pay privately for in home services as well. This was a very emotional meeting and family will need to consider all of their options as they make decisions going forward. [facility], Nancy, does report that they are saving a room for Mr. Gonzalez.
--- NOTE | 2019-02-08 15:50 | NUR ---
JENI and JENI cao collaborated with palliative care nurse, Samantha. Samantha reports that the patient and patient's and daughter (Asmita) are leaning towards SNF at [facility]. JENI and JENI cao then met with the patient and patient's daughter to follow up with and to present and explain the patient choice form. The patient's daughter report that they prefer [facility] and that they do not have a second preference at this time. The patient choice form was signed by the patient's daughter and she was provided a copy. JENI cao to contact and fax a referral to [facility]. The patient's daughter also had questions about private duty aides for if the patient does go home with hospice after his SNF stay. Samantha had provided them with a list of home health agencies that serve [place]. NGO to ask [facility] if they are aware of any agencies around the area that can provide those services. JENI to continue to follow.
[2019-02-08 16:19] VITALS: BP 106/72; PULSE 107; TEMP 96.5
--- NOTE | 2019-02-08 19:37 | NUR ---
Patient sitting up in bed with family at bedside. Pt denies pain. Dressing on skin tears, on chest and arms. Fluids infusing at 100 into PICC in right upper arm. Distended abdomen- very firm,, pt feels uncomfotable, describing it as "full". Given 2 cups of ice. No further needs at this time.
[2019-02-08 20:19] VITALS: BP 99/65; PULSE 107; TEMP 97.3
[2019-02-08 23:44] VITALS: BP 90/54; PULSE 101; TEMP 97.4
[2019-02-09] VITALS (12 sets, daily range): BP systolic 76–113; BP diastolic 43–70; PULSE 93–108; TEMP 96–97.8
--- NOTE | 2019-02-09 05:26 | NUR ---
Pt slept on/off throughout the night. States he has a "full" feeling, distended abdomen. No reports of pain/nausea. Repositioned several times throughout the night and boosted up in bed. No further neneeds at this time.
[2019-02-09 05:30] LABS: MEAN CELL VOLUME 103 fl (80.0-100.0); MEAN CORPUSCULAR HGB CONC 34 g/dl (33.0-37.0); MEAN PLATELET VOLUME 12.2 fl (7.4-10.4); RED BLOOD COUNT 2.11 M/mm3 (4.20-5.60); REDCELL DISTRIBUTION WIDTH-CV 17.3 % (11.5-14.5)
[2019-02-09 05:49] LABS: ALBUMIN 2.5 gm/dL (3.5-5.0); BILIRUBIN,TOTAL 3.1 mg/dL (0.0-1.0); CREATININE, serum 1.54 mg/dL (0.66-1.25); POTASSIUM 3.9 mmol/L (3.4-5.0); TOTAL PROTEIN 4.6 gm/dL (6.4-8.2)
[2019-02-09 06:24] LABS: HEMATOCRIT 21.8 % (42.0-52.0); HEMOGLOBIN 7.5 g/dl (13.5-18.0); MEAN CORPUSCULAR HEMOGLOBIN 36 pg (27.0-31.0); PLATELET COUNT 28 K/mm3 (130-400)
--- NOTE | 2019-02-09 07:16 | NUR ---
Report given to NICOLE Rhodes. Patient resting in bed. NO needs at this time.
[2019-02-09 07:46] LABS: ANISOCYTOSIS 1+; EOSINOPHIL 2 % (0-4); HYPOCHROMIA 1+; LYMPHOCYTE 6 % (20.0-51.0); METAMYELOCYTE 1 % (0-0); NEUTROPHILS 91 % (42.0-75.2); PLATELET ESTIMATE DECREASED (NORMAL)
--- NOTE | 2019-02-09 08:40 | NUR ---
Pt is A+Ox3, pleasant, denies pain, he is weak but independent in bed. Assistance provided for boost in bed. Physical assessment completed. PICC to KADIE free of redness, some swelling noted but BUE has 2+ edema, fluids infusing. PAC to Rt chest site free of redness, swelling, patent with blood return. Pt's chest, bilat arms, bilat legs have scattered bruises and many skin tears. Left hand posterior surface has skin tear covered with gauze and loose coban, bilat lower arms and elbows covered with gauze and wrap for protection. SCD's in place, BLE has 3+ edema from feet to knees. Pt is very distended and tight in abdomen, reports tenderness to palpation. pt appetite is poor, sipping at Ensure shakes. No further needs, family at bedside abnd call light in reach
[2019-02-09 08:45] LABS: PATHOLOGY DIFF REVIEW OK
--- NOTE | 2019-02-09 09:42 | NUR ---
Nancy from [facility] reports that they are unable to accept the patient for a skilled stay, but they could accept him if he were to go hospice. SW to inform the patient and patients family and will continue to follow.
--- NOTE | 2019-02-09 13:14 | NUR ---
JENI, JENI student, and palliative care nurse (Samantha) met with [facility] Support was provided. The [facility]'s reports that [facility] and would like to discuss other options with her daughter, Asmita. SW to continue to follow.
--- NOTE | 2019-02-09 14:39 | NUR ---
Jailene, from [facility], contacted for updates on the patient. Tra and Pilar report that the patient is on the board for their facility and that they would like to accept the patient, but need to be able to meet his needs. They report that the only room they have available at this time, is a room at the end of the marsh[facility]. They report that they would not be able to administer IV antibiotics, perform a paracentesis, if the patient were to ever need those. JENI faxed updates to to Jailene from [facility]. SW to update to patient's and continue to follow.
--- NOTE | 2019-02-09 14:52 | NUR ---
Pt is resting in bed, IV infusing initiated at 60 cc/hr into PICC to REBEKAH red port, pt denies chills, aches, LOPEZ, pain, etc. Vitals are WNL and pt afebrile. This RN will remain at bedside for first fifteen minutes.
--- NOTE | 2019-02-09 15:10 | NUR ---
This RN at bedside for first 15 minutes of infusion, pt continues to deny chills/aches/LOPEZ/etc, vitals WNL, increased infusion to rate of 125 cc/hr. Family at bedside at this time, carolyn light in reach, no further needs, will continue to monitor
--- NOTE | 2019-02-09 16:36 | NUR ---
pT continues to nap during infusion, denies aches/LOPEZ/eaidl0h/SOB and further sx of complciations. Vitals stable, pt afebrile, no SOB on RA, at bedside
--- NOTE | 2019-02-09 17:40 | NUR ---
Infusion complete, PICC site free of redness, swelling. Tubing disposed of. Pt denies chills, SOB, aches, and vitals still WNL. BP dropped but gradually increased back to baseline. Pt denies dizziness throughout. Fluids infusing per orders. No furtehr needs, at bedside, call light in reach, dinner being ordered, pt repositioned.
--- NOTE | 2019-02-09 18:23 | NUR ---
Through shift pt BP has remained soft, MAP is low and Charlotte ROBERTSON informed. ONe fluid bolus of 500 given, and one unit of blood administered. Pt experienced no adverse reactions. He is less alert and states he feels "more tired, and done fighting" this evening than at start of shift. PICC and Port sites free of redness, swelling. Bilat upper and lower exremities are very edematous, ascites present. Skin all over is bruised with skin tears, scabs. at bedside. Pt has eaten little through day, encouraged to drink. Very little output. Central line dressing changed today. No further needs, call yossi xiong
--- NOTE | 2019-02-09 18:38 | NUR ---
rEPORT GIVEN to Francisca RIVERA, pt denies needs
--- NOTE | 2019-02-09 19:12 | NUR ---
Patient resting in bed with family at bedside. IVF infusingat 100 mls/hr into picc. Assessment completed- distended abdomen, firm, bowel sounds active, lung sounds clear, BLE edema 3+. SCD's on pt. Skin tears covered in dressings. Pt denies pain, no nausea/vomiting. No further needs at this time.
[2019-02-10] VITALS (8 sets, daily range): BP systolic 87–153; BP diastolic 46–92; PULSE 18–109; TEMP 97.5–98.3
--- NOTE | 2019-02-10 03:54 | NUR ---
Pt repositioned in bed, now resting on left side. Had torn off dressings applied to right arm, pt has a skin tear on right forearm. Reapplied new dressing. Patient also given cranberry and apple juice. Boosted up in bed. NO further needs at this time.
--- NOTE | 2019-02-10 05:04 | NUR ---
Pt somewhat restless throughout the night, needing frequent repositioning. new dressing to right forearm. No further needs at this time.
--- NOTE | 2019-02-10 06:17 | NUR ---
Another dressing came off of patient, this on the left arm. Redressed and rewrapped.
[2019-02-10 06:33] LABS: ALBUMIN 2.4 gm/dL (3.5-5.0); BILIRUBIN,TOTAL 3.2 mg/dL (0.0-1.0); CALCIUM 7.6 mg/dL (8.4-10.2); CREATININE, serum 1.48 mg/dL (0.66-1.25); POTASSIUM 3.9 mmol/L (3.4-5.0); TOTAL PROTEIN 4.4 gm/dL (6.4-8.2)
[2019-02-10 06:47] LABS: MEAN CELL VOLUME 100 fl (80.0-100.0); MEAN CORPUSCULAR HGB CONC 35 g/dl (33.0-37.0); MEAN PLATELET VOLUME 11.9 fl (7.4-10.4); RED BLOOD COUNT 2.27 M/mm3 (4.20-5.60); REDCELL DISTRIBUTION WIDTH-CV 19.5 % (11.5-14.5)
--- NOTE | 2019-02-10 06:48 | NUR ---
Report given to NICOLE Rhodes. New dressings applied to upper chest- skin tear.
[2019-02-10 06:52] LABS: HEMATOCRIT 22.7 % (42.0-52.0); HEMOGLOBIN 7.9 g/dl (13.5-18.0); MEAN CORPUSCULAR HEMOGLOBIN 35 pg (27.0-31.0)
[2019-02-10 06:53] LABS: PLATELET COUNT 20 K/mm3 (130-400)
[2019-02-10 07:30] LABS: ANISOCYTOSIS 2+; BAND 7 % (0-10); EOSINOPHIL 1 % (0-4); LYMPHOCYTE 10 % (20.0-51.0); NEUTROPHILS 81 % (42.0-75.2); NUCLEATED RED BLOOD CELL 1 (0-6); PLATELET ESTIMATE DECREASED (NORMAL)
--- NOTE | 2019-02-10 08:20 | NUR ---
PT is A+Ox3, pleasant, minimally covnersive, denies pain, denies SOB. He is jaundiced, abdomen very distended with fluid, BLE has 3-4+ edema which is weeping from legs, skin tear to rt posterior calf is covered with non-stick gauze. Bilateral elbows and arms have scattered bruises and skin tears, dressings in place. PICC to REBEKAH free of redness, swelling, although BUE have 2+ edema. Port to rt chest free of redness, swelling, and patent with blood return, but pt's entire chest is a bruise, large tear to rt chest where small tear was covered with nonstick gauze that pulled off his scab and worsened tear. pt has been restless, rubbing arms and tugging at linen with little awareness of skin condition. Lungs are mostly clear, pt on RA. Family at bedside, no needs at this time, call light in reach
--- NOTE | 2019-02-10 11:58 | NUR ---
This RN changed dressings to pt's bilateral arms, elbows, left hand, and right posterior calf. pt has skin tears and significant bruising all over, which are oozing serous fluid. Linen soaked from rt calf tear, bed change provided. Pt repositioned, no further needs, family at bedside
--- NOTE | 2019-02-10 18:53 | NUR ---
Through shift pt vitals remain stable, he denies pain, SOB. Abdomen is very distended and tight, legs are still weeping and paper chux beneath him are being changed prn. Family and visitors at bedside throughout day. Fluids infusing at 50 per orders to PICC, site free of complciations. Port to rt chest deaccessed by this RN to protect skin integrity. No further needs, call lgiht in reach. Report given to Francisca RIVERA
--- NOTE | 2019-02-10 19:25 | NUR ---
Call from telemetry, patient having some runs of v-tach. Cooper ore charger nurse notified and contacted JENISE Marinelli. Stat EKG ordered. Pressures beginning to drop- see vitals for details. Isis up to see patient and talk with family. Patient not wanting to continue with treatments, stop fluids and vitals. Family at bedside- sitting and talking with patient.
--- NOTE | 2019-02-10 20:13 | NUR ---
Family and patient have decided to go comfort care. Telemetry, fluids, vitals D/C'd.
--- NOTE | 2019-02-10 21:15 | NUR ---
Dressing to right lower extremity came off. Redressed with gauze.
--- NOTE | 2019-02-11 03:32 | NUR ---
Right forearm dressing off, skin tear bleeding slightly. New dressing applied. Patient states he has no other needs at this time. Family at bedside.
--- NOTE | 2019-02-11 05:12 | NUR ---
After going comfort care patient had uneventful night. Family at bedside throughout the night, frequent repositioning. Pt states he has no pain. Dressings changed on right calf and right forearm.
--- NOTE | 2019-02-11 07:09 | NUR ---
Report given to NICOLE Norris. Patient resting in bed with family at bedside. No needs at this time.
--- NOTE | 2019-02-11 08:10 | NUR ---
Pt and family have changed goal of care to comfort after events through the night. Pt is sitting up in chair enjoying the sunshine and and daughter are at bedside. Family seems supportive of pt's decision. Comfort quilt was provided and comfort care basket was ordered. Will be available later in morning to discuss plans further.
--- NOTE | 2019-02-11 08:49 | NUR ---
Spoke with daughter this morning and family is requesting that pt be discharged to home on hospice services from [facility]. They would like to be in their apartment tonight. Pt will go by ambulance and family is aware that they would be responsible for ambulance charge. Daughter is going home to rest and remains at bedside. Dr Bañuelos and treatment team has been advised of the above and we will do all within our power to follow the family's wishes.
[2019-02-11] MEDS ORDERED: IPRATROPIUM BROM3 M1 IH (09:48)
[2019-02-11] MEDS ORDERED: ROXANOL 20MG20 MG/ML SL (09:51)
[2019-02-11] MEDS ORDERED: ATIVAN 1MG T1 MG/TAB PO (09:52)
[2019-02-11] MEDS ORDERED: ZOFRAN ODT4 MG PO (09:52)
--- NOTE | 2019-02-11 09:53 | NUR ---
Palliative care nurse, Samantha, informed JENI that after the patient had events over the night; the patient's family have decided to pursue hospice at home through [facility] and with the goal of transferring home today, 02/11. JENI and JENI student then followed up with the patient's and daughter. The patient's reports that they would need to private duty aides or nurses for 24/7 care. SW discussed options and how it may be difficult to get nurses and aides staffed today. The patient and patient's daughter then informed SW that they had been discussing the option of hospice at [facility] and that they would then prefer the patient going to them for hospice, due to having 24/7 care. JENI then contacted and faxed updates to Nancy at [facility]. Nancy reports that they can accept the patient after the patient's signs their paperwork and that they will need his actual insurance cards, ID, and social security card. JENI informed the patient's . JENI also contacted and faxed a referral to Lina at [facility]. Lina reports that they can accept the patient for services. SW to continue to follow.
[2019-02-11 10:03] VITALS: BP 103/55
--- NOTE | 2019-02-11 10:03 | NUR ---
Pt resting up in recliner with eyes closed. Family at bedside. Dressing changes to bilateral upper and lower extremities performed with primary nurse. Patient tolerated well. Morning PO meds held at this time per family wishes to allow pt to rest. Shift assessment completed. Denies any further needs at this time.
--- NOTE | 2019-02-11 13:08 | NUR ---
Patient was assisted to commode. Was incontinent of a large loose bowel movement. Yasmeen-care provided. 3 people to assist from commode to bed. States he feels weak. Bilateral lower extremities are weeping. Legs cleansed and wrapped, covered with ABDs and wrapped in kerlix. Family is at bedside doing paperwork. EMS is coming to pick patient up for discharge at 1315.
--- NOTE | 2019-02-11 13:43 | NUR ---
The paperwork needed was filled out and signed by the patient's . JENI witnessed some of the forms. The patient also completed DPOA-HC. The patient designated his and daughter (Asmita). JENI and the patient's RN, Ansley, witnessed the patient sign. The patient was provided with the original and some copies. JENI placed a copy in the patient's chart and also faxed a copy to Nancy at [facility]. JENI also completed a terminal illness certification. JENI faxed a copy to [facility] and [facility]. Nancy at [facility] reports that they are able to accept the patient for hospice today. The patient's family also preferred an EMS transport. JENI contacted Gregory at [facility] and Gregory reports an ABN form will need to be signed. JENI provided the ABN to the patient's . The patient's was agreeable to the estimated cost of the ride, if insurance did not cover. The patient's signed and she was provided a copy. The patient is to discharge today, 02/11, to [facility] on hospice through [facility]. Transportation was set for 1315, via [facility]. JENI informed the patient, patient's family, [facility], [facility], and his nurse. They were all in agreeance. JENI also presented and explained the IM form to the patient's . The patient's verbalized understanding, signed, and she was provided a copy. No additional needs at this time.
--- NOTE | 2019-02-11 13:49 | NUR ---
Primary nurse was assisted with [id number] patient care by [employer] student Mela Mayfield and [employer] instructor Joselin Mcginnis RN-.
== END 2019-02-11 13:40 | disposition hospice, inpatient (51) | DRG 871 ==
LOC: COL.ER 02:05 → ICU 05:10 → MEDICAL 02-07 15:08
PROVIDERS: Emergency Medicine; Internal Medicine; Nurse Practitioner Family; Physician Assistant; ADMIT Hospitalist
PROC: 0W9G3ZX Drainage of Peritoneal Cavity, Percutaneous Approach, Diagnostic (ICD-10-PCS; principal; 2019-02-04)
PROC: 0W9G3ZZ Drainage of Peritoneal Cavity, Percutaneous Approach (ICD-10-PCS; 2019-02-04)
DX: A41.9 Sepsis, unspecified organism (principal); R65.21 Severe sepsis with septic shock; G93.41 Metabolic encephalopathy; K72.00 Acute and subacute hepatic failure without coma; Z66 Do not resuscitate; Z51.5 Encounter for palliative care; C78.7 Secondary malignant neoplasm of liver and intrahepatic bile duct; N17.9 Acute kidney failure, unspecified; E87.1 Hypo-osmolality and hyponatremia; E87.2 Acidosis; R18.0 Malignant ascites; C78.6 Secondary malignant neoplasm of retroperitoneum and peritoneum; E44.0 Moderate protein-calorie malnutrition; Z85.030 Personal history of malignant carcinoid tumor of large intestine; I10 Essential (primary) hypertension; N18.3 Chronic kidney disease, stage 3 (moderate); E78.5 Hyperlipidemia, unspecified; E87.5 Hyperkalemia; D64.9 Anemia, unspecified; D69.59 Other secondary thrombocytopenia; T45.1X5A Adverse effect of antineoplastic and immunosuppressive drugs, initial encounter; K74.60 Unspecified cirrhosis of liver; I49.9 Cardiac arrhythmia, unspecified; Z68.30 Body mass index [BMI] 30.0-30.9, adult; R68.0 Hypothermia, not associated with low environmental temperature
CPT/HCPCS: 99223-AI; 99232-AI; 99233-AI; A4216; C1751; J0610; J0692; J1815; J1956; J2060; J2405; J2550; J3370; J7030; J7040; J7050; P9040